=== PATIENT | male | born 1980 | race Caucasian/White ===

== ENCOUNTER 2023-08-09 12:16 | Emergency (ER) | payer BC ==
[~2023-08-09] VITALS: Ht 162.6 cm; Wt 81.8 kg
[~2023-08-09 12:16] MED LIST: COZAAR 50MG50 MG/TAB PO; D3-5050000 IU PO; FLONASEALLERGY NS; GLUCOPHAGE500 MG/TAB PO; KLONOPIN 0.5MG0.5 MG PO; LAMICTAL 100MG100 MG PO; PROAIR HFA0.09 MG/AC IH; SINGULAIR 110 MG/TAB PO; ZYRTEC 10MG10 MG PO
[2023-08-09] MEDS ORDERED: NS 1,000 ML IV ONE (15:00)
[2023-08-09 15:21] LABS: BASO # 0.1 K/mm3 (0.0-0.2); BASO % 1.1 % (0.0-2.0); EOS # 0.2 K/mm3 (0.0-0.7); EOS % 4.3 % (0.0-4.0); GRAN # 2.3 K/mm3 (1.4-6.5); GRAN % 43.6 % (42.2-75.2); HEMATOCRIT 44.3 % (42.0-52.0); LYMPH # 2.1 K/mm3 (1.2-3.4); LYMPH % 39.6 % (20.0-51.0); MEAN CELL VOLUME 87 fl (80.0-100.0); MEAN CORPUSCULAR HEMOGLOBIN 30 pg (27-31); MEAN CORPUSCULAR HGB CONC 34 g/dl (33.0-37.0); MEAN PLATELET VOLUME 10.4 fl (7.4-10.4); MONO # 0.6 K/mm3 (0.1-0.6); MONO % 11.4 % (1.7-9.3); PLATELET COUNT 280 K/mm3 (130-400); RED BLOOD COUNT 5.09 M/mm3 (4.20-5.60); REDCELL DISTRIBUTION WIDTH-CV 12.5 % (11.5-14.5)
[2023-08-09 15:39] LABS: ALBUMIN 4.1 gm/dL (3.5-5.0); BILIRUBIN,TOTAL 0.3 mg/dL (0.2-1.2); CALCIUM 9.7 mg/dL (8.4-10.2); POTASSIUM 3.8 mmol/L (3.5-4.5)
[2023-08-09 16:23] VITALS: BP 138/82; PULSE 56; TEMP 98.3
== END 2023-08-09 16:24 | disposition home or self-care (01) ==
LOC: COL.ER 12:16
PROVIDERS: Physician Assistant
DX: R51.9 Headache, unspecified (principal); T50.905A Adverse effect of unspecified drugs, medicaments and biological substances, initial encounter
CPT/HCPCS: J7030

== ENCOUNTER → 2024-01-20 | Outpatient (CLI) | payer BC | LOC: COL.RAD 08:35 | DX: M25.571 Pain in right ankle and joints of right foot (principal); S99.0 Physeal fracture of calcaneus ==